=== PATIENT | male | born 1985 | race Caucasian/White ===

== ENCOUNTER 2022-02-24 10:29 | Emergency (ER) | payer SELFPAY ==
[~2022-02-24] VITALS: Ht 172.7 cm; Wt 74.8 kg
[2022-02-24] MEDS ORDERED: BLOOD PRESSURE MED (10:39)
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
--- NOTE | 2022-02-24 10:45 | NUR ---
Dr. Miller in to see patient.
[2022-02-24] MEDS ORDERED: IBUPROFEN 800 MG TABLET PO ONE (11:00)
[2022-02-24 11:34] LABS: *BILIRUBIN,URIN NEGATIVE (NEGATIVE); *BLOOD, URINE 2+ (NEGATIVE); *CLARITY,URINE CLEAR (CLEAR); *COLOR,URINE YELLOW (YELLOW); *KETONES,URINE NEGATIVE (NEGATIVE); *UROBILINOGEN,URINE 0.2 E.U./dl (NORMAL); LEUKOCYTE ESTERASE ,URINE NEGATIVE (NEGATIVE); NITRITE, URINE NEGATIVE (NEGATIVE); PH,URINE 5.5 (5.0-8.0); UGLUCOSE NEGATIVE (NEGATIVE)
--- NOTE | 2022-02-24 11:36 | NUR ---
PATIENT BROUGHT BACK FROM CT SCAN.
[2022-02-24 12:00] LABS: WBC,URINE 0-3 /HPF (0-3)
[2022-02-24 12:01] LABS: BACTERIA,URINE FEW /HPF (NONE SEEN); SQUAMOUS EPITHELIAL CELL,UR NONE SEEN /HPF (NONE SEEN)
--- NOTE | 2022-02-24 12:22 | NUR ---
KNEE IMMOBILIZER GIVEN TO PATIENT. PRODUCT LABEL: [facility] [id number]. [id number].
[2022-02-24] MEDS ORDERED: IBUP-1957 PO (12:32)
--- NOTE | 2022-02-24 12:44 | NUR ---
DOCTOR SPOKE TO PATIENT REGARDING RESULTS AND DISCHARGE INSTRUCTIONS. PATIENT UNDERSTOOD AND SIGNED DISCHARGE INSTRUCTIONS.
== END 2022-02-24 12:47 | disposition home or self-care (01) ==
LOC: ER 10:29
DX: S39.012A Strain of muscle, fascia and tendon of lower back, initial encounter (principal); S83.422A Sprain of lateral collateral ligament of left knee, initial encounter; V43.52XA Car driver injured in collision with other type car in traffic accident, initial encounter; Y92.414 Local residential or business street as the place of occurrence of the external cause; I10 Essential (primary) hypertension
CPT/HCPCS: 72131; A4663